=== PATIENT | female | born 1985 | race Caucasian/White ===

== ENCOUNTER 2023-06-21 09:23 | Outpatient (CLI) | payer OTHER ==
[2023-06-21 19:21] LABS: BASOPHILS % (AUTO) 0.6 %; EOSINOPHILS # (AUTO) 0.1 10^3/uL (0.0-0.7); EOSINOPHILS % (AUTO) 1.7 %; HGB - HEMOGLOBIN 13.8 g/dL (12.0-16.0); LYMPHOCYTES # (AUTO) 1.9 10^3/uL (1.5-3.5); LYMPHOCYTES % (AUTO) 28.6 %; MEAN CORPUSCULAR HEMOGLOBIN 30.5 pg (27.0-31.0); MEAN CORPUSCULAR HGB CONC 32.1 g/dL (32.0-36.0); MEAN CORPUSCULAR VOLUME 95.1 fL (81.0-99.0); MONOCYTES # (AUTO) 0.6 10^3/uL (0.0-1.0); MONOCYTES % (AUTO) 9.2 %; NEUTROPHILS % (AUTO) 59.6 %; PLT - PLATELET COUNT 258 10^3/uL (130-450); RED BLOOD COUNT 4.52 10^6/uL (4.20-5.40); RED CELL DISTRIBUTION WIDTH 12.9 % (12.0-15.0); WHITE BLOOD COUNT 6.7 x10^3/uL (4.8-10.8)
[2023-06-21 19:36] LABS: ALBUMIN 4.6 g/dL (3.2-5.5); ALBUMIN/GLOBULIN RATIO 1.6 (1.0-2.2); ALKALINE PHOSPHATASE 50 IU/L (42-121); ALT ALANINE AMINOTRANSFERASE 17 IU/L (10-60); AST ASPARTATE AMINOTRANSFERASE 15 IU/L (10-42); BILIRUBIN,TOTAL 0.4 mg/dL (0.2-1.0); BUN - BLOOD UREA NITROGEN 15 mg/dL (6-20); CALCIUM 9.5 mg/dL (8.5-10.3); CARBON DIOXIDE - CO2 27 mmol/L (21-32); CHLORIDE 105 mmol/L (101-111); CHOL/HDL RATIO 3.2 (<4.4); CHOLESTEROL 181 mg/dL; CREATININE 0.8 mg/dL (0.6-1.3); GFR - MDRD 81 (>89); GLUCOSE 78 mg/dL (74-104); HDL CHOLESTEROL 56 mg/dL; LDL CHOLESTEROL,CALCULATED 111 mg/dL; POTASSIUM 4.5 mmol/L (3.5-4.5); SODIUM 136 mmol/L (135-145); TOTAL PROTEIN 7.4 g/dL (6.4-8.9); TRIGLYCERIDES 70 mg/dL (48-352); VLDL CHOLESTEROL 14 mg/dL
[2023-06-21 19:40] LABS: THYROID STIMULATING HORMONE 0.63 uIU/mL (0.34-5.60)
[2023-06-21 20:27] LABS: ESTIMATED AVERAGE GLUCOSE 100 mg/dL (70-100); HEMOGLOBIN A1c% 5.1 % (4.27-6.07)
== END 2023-06-21 09:24 | disposition home or self-care (01) ==
LOC: LAB.N 09:23
PROVIDERS: ATTEND Nurse Practitioner Family
DX: Z00.00 Encounter for general adult medical examination without abnormal findings (principal)
CPT/HCPCS: 36415; 80053; 80061; 83036; 83721; 84443; 85025